=== PATIENT | male | born 1960 | race Caucasian/White ===

== ENCOUNTER → 2023-08-03 09:44 | Outpatient (CLI) | payer MEDICARE, SELFPAY ==
[2023-08-03 13:04] LABS: Hemoglobin A1C% w Est Avg Glu 9.7 % (4.0-6.0)
== END ==
PROVIDERS: Referring Provider Physician Assistant; Visit Provider Surgery
DX: E11.621 Type 2 diabetes mellitus with foot ulcer (principal); L97.512 Non-pressure chronic ulcer of other part of right foot with fat layer exposed; E11.42 Type 2 diabetes mellitus with diabetic polyneuropathy; L84 Corns and callosities; Z79.620 Long term (current) use of immunosuppressive biologic; Z87.891 Personal history of nicotine dependence
CPT/HCPCS: 11042; 36415; 73630; 83036; 87070; 87075; 87077; 87186; 87205; 99204; 99214

== ENCOUNTER → 2023-08-03 11:11 | Outpatient (CLI) | payer MEDICARE, SELFPAY ==
--- NOTE | 2023-08-03 11:16 | DI.RAD.S_ITS ---
PROCEDURE: XR FOOT RT MIN 3V INDICATIONS: Evl for osteo TECHNIQUE: 3 views of the foot were acquired. COMPARISON: [facility], CR, XR FOOT 3 VIEWS WEIGHT BEARING LEFT, 08/02/2023, 10:20. FINDINGS: Bones: Cortical and osseous irregularity and lucency involving the medial base of the 1st distal phalanx. No suspicious bony lesions. Soft tissues: No tibiotalar joint effusion. Achilles tendon appears normal. IMPRESSION: Cortical and osseous irregularity of the medial base of the 1st distal phalanx. Findings may represent osteomyelitis if this is the area of concern versus fracture deformity. Dictated by: David Munoz M.D. on 08/03/2023 at 15:20 Approved by: David Munoz M.D. on 08/03/2023 at 15:22
== END ==
PROVIDERS: Referring Provider Surgery; Visit Provider Surgery
DX: E11.621 Type 2 diabetes mellitus with foot ulcer (principal)
CPT/HCPCS: 73630

== ENCOUNTER → 2023-08-10 10:09 | Outpatient (CLI) | payer MEDICARE, SELFPAY | PROVIDERS: Referring Provider Physician Assistant; Visit Provider Surgery | DX: E11.621 Type 2 diabetes mellitus with foot ulcer (principal); L97.512 Non-pressure chronic ulcer of other part of right foot with fat layer exposed; E11.40 Type 2 diabetes mellitus with diabetic neuropathy, unspecified; L84 Corns and callosities; Z79.620 Long term (current) use of immunosuppressive biologic | CPT/HCPCS: 11042; 99213 ==

== ENCOUNTER → 2023-08-17 08:09 | Outpatient (CLI) | payer MEDICARE, SELFPAY ==
--- NOTE | 2023-08-17 08:10 | DI.MRI.S_ITS ---
PROCEDURE: MR FOOT RT WO/W CON INDICATIONS: Right Hallux ulcer, diabetic foot ulcer. Suspicious of oste TECHNIQUE: Noncontrast coronal T1 spin echo and STIR, sagittal T1 spin echo with fat saturation and STIR, axial T1 spin echo and T2 fast spin echo with fat saturation. After the administration of contrast, axial/sagittal/coronal T1 spin echo with fat saturation through the right forefoot COMPARISON: None. FINDINGS: Image quality: Excellent. Bones: Imaging findings show decreased signal and contrast enhancement throughout the base of the patient's right 1st distal phalanx with an associated effusion in the DIP joint. Imaging findings are consistent with an area of osteomyelitis. There is an associated mild to moderate cellulitis type pattern involving the forefoot without evidence for focal abscess at the present time. Marrow signal remaining visualized bones appears within normal limits. No significant degenerative changes are seen. Visualized ligaments and tendons appear intact. Musculature appears within normal limits. IMPRESSION: 1. Findings consistent with osteomyelitis involving the right 1st distal phalanx. 2. Associated small to moderate-sized effusion in the DIP joint. 3. Mild to moderate cellulitis type pattern over the forefoot without evidence for focal abscess seen. Dictated by: Jason Bernstein M.D. on 08/17/2023 at 13:52 Approved by: Jason Bernstein M.D. on 08/17/2023 at 14:00
== END ==
PROVIDERS: Referring Provider Surgery; Visit Provider Surgery
DX: E11.621 Type 2 diabetes mellitus with foot ulcer (principal); L97.519 Non-pressure chronic ulcer of other part of right foot with unspecified severity; L03.115 Cellulitis of right lower limb
CPT/HCPCS: 73720; A9579

== ENCOUNTER → 2023-08-17 09:49 | Outpatient (CLI) | payer MEDICARE, SELFPAY | PROVIDERS: Referring Provider Physician Assistant; Visit Provider Surgery | DX: E11.621 Type 2 diabetes mellitus with foot ulcer (principal); L97.519 Non-pressure chronic ulcer of other part of right foot with unspecified severity; L03.115 Cellulitis of right lower limb; L97.512 Non-pressure chronic ulcer of other part of right foot with fat layer exposed; E11.42 Type 2 diabetes mellitus with diabetic polyneuropathy; Z79.620 Long term (current) use of immunosuppressive biologic | CPT/HCPCS: 73720; 99213; A9579 ==

== ENCOUNTER → 2023-08-24 10:12 | Outpatient (CLI) | payer MEDICARE, SELFPAY | PROVIDERS: Referring Provider Physician Assistant; Visit Provider Surgery | DX: L97.512 Non-pressure chronic ulcer of other part of right foot with fat layer exposed (principal); E11.621 Type 2 diabetes mellitus with foot ulcer; E11.42 Type 2 diabetes mellitus with diabetic polyneuropathy; Z79.620 Long term (current) use of immunosuppressive biologic; L84 Corns and callosities | CPT/HCPCS: 99213 ==

== ENCOUNTER → 2023-09-07 10:52 | Outpatient (CLI) | payer MEDICARE, SELFPAY ==
--- NOTE | 2023-09-07 | OV.WND_ITS ---
Progress Note Details Patient Name: Dorian Canaels Patient Number: [id number] Clinician: Ny Reis Patient Date of : 1960 Physician / Testing Projects Administrator: Stefan Burns Patient SUBJECTIVE Chief Complaint This information was obtained from the Chart, Patient. (callus to right foot) Allergies Shellfish Containing Products HPI This information was obtained from the Patient. The following HPI elements were documented for the patient's wound: Location: R great toe Duration: 08/03/23 Context: DFU Associated Signs and Symptoms: none The patient is a 63-year-old male with diabetes, neuropathy, melanoma, and previous liver transplant who returns today for surveillance of diabetic foot ulcer of right great toe. The patient was receiving dressing changes with Hydrofera blue and using a postop surgical shoe for pressure offloading. The ulcer was noted to be healed at his last visit on August 24, 2023. The patient denies any pain or discomfort nor has he had any redness, swelling, or drainage. He has not had any fever or chills. The patient has never had a similar problem in the past. He does not use diabetic footwear. He reports a good appetite and denies any other recent changes in his overall health. KRYSTYNA of right lower extremity was 1.2. The patient does not routinely monitor his blood sugars. Blood sugar was 209 this morning. He is on chronic immunosuppression. Patient has recently completed a course of amoxacillin. On exam today the ulcer remains healed, no obvious infection. X-rays showed area of possible osteomyelitis base of 1st distal phalanx. Cultures grew Staphylococcus epidermidis. MRI revealed evidence for osteomyelitis of the 1st distal phalanx. The patient is not currently on any antibiotics. The patient was seen by ID and no further treatment was reccomended. He has not yet obtained diabetic footwear. LABS: 08/03/23: Hemoglobin A1c 9.7 08/03/23: X-ray right foot revealed cortical and osseous irregularity of the medial base of the 1st distal phalanx. Findings may represent osteomyelitis if this is the area of concern versus fracture defor OBJECTIVE Vitals Height/Length: 69 in (175.26 cm), Weight: 233.4 lbs (106.09 kgs), BMI: 34.5, Temperature: 97.8 ?F (36.56 ?C), Pulse: 62 bpm, Respiratory Rate: 16 breaths/min, Blood Pressure: 144/81 mmHg, Pulse Oximetry: 97 %. Physical Exam Canales Dorian [id number] 1960 Constitutional: Vital signs reviewed and noted. Well developed, well nourished, and in no acute distress. Alert and oriented x3. Respiratory: Even respirations without use of accessory muscles. No intercoastal retractions noted. Even and non labored respiration. Integumentary (Hair, Skin): See wound assessment. Neurological: decreased lower extremity sensation. Psychiatric: Orientation to time, place and person: Normal affect with normal thought pattern. ASSESSMENT Active Problems ICD-10 (Encounter Diagnosis) L97.512 - Non-pressure chronic ulcer of other part of right foot with fat layer exposed (Encounter Diagnosis) E11.621 - Type 2 diabetes mellitus with foot ulcer (Encounter Diagnosis) E11.42 - Type 2 diabetes mellitus with diabetic polyneuropathy (Encounter Diagnosis) Z79.620 - senior living (current) use of immunosuppressive biologic General Notes Diabetic ulcer right great toe healed, MRI shows evidence for osteomyelitis The following factors have been identified that may affect wound healing: Devitalized tissue Biofilm Diabetes Neuropathy Pressure Immune suppression Goals: Remove devitalized tissue Remove and prevent biofilm Pressure offloading Prevent infection Wound closure Prevent recurrence Plan: Continue postop surgical shoe for pressure offloading, apply felt surround pad to help with offloading until appropriate diabetic footwear can be obtained. Daily skin inspections, follow up at wound center as needed. PLAN Additional Orders: Off-Loading Other order - use felt surround until diabetic shoesarrive Follow-Up Appointments Other information: If you develop fever, chills, increased pain, drainage, redness or swelling please call our office. If after hours, respond to the ER. Should you experience any significant changes in your wound(s) or have any questions regarding your home care instructions please contact the wound Dorian Canales [id number] 1960 [place] @ [phone]. If after hours, contact your primary care physician or go to the hospital emergency room. Discharge from Outpatient Services. Physician Review: Reviewed and evaluated labs. Discussed the Plan of Care @ bedside with - The patient Reviewed hospital records. I, as the physician, have reviewed the orders scribed by the center RN's and agree. Scribing Attestation I attest, as the nurse, that I scribed these orders for the physician. Electronic Signature(s) Signed By: Date: Stefan Burns MD 09/07/2023 10:49:39 (PT) Entered By: Stefan Burns MD on 09/07/2023 10:49:15 (PT) Dorian Canales [id number] 1960
== END ==
PROVIDERS: Referring Provider Physician Assistant; Visit Provider Surgery
DX: L97.512 Non-pressure chronic ulcer of other part of right foot with fat layer exposed (principal); E11.621 Type 2 diabetes mellitus with foot ulcer; E11.42 Type 2 diabetes mellitus with diabetic polyneuropathy
CPT/HCPCS: 99211; 99213